=== PATIENT | male | born 2000 | race Caucasian/White ===

== ENCOUNTER → 2024-12-31 | Outpatient (CLI) | payer OTHER, MEDICAID, SELFPAY ==
[2024-12-31 12:31] LABS: Influenza A Ag Negative; Influenza B Ag Negative
== END | disposition home or self-care (01) ==
LOC: SLDO 11:19
PROVIDERS: PCP Nurse Practitioner Family; Referring Provider Nurse Practitioner Family; Visit Provider Nurse Practitioner Family
DX: J20.9 Acute bronchitis, unspecified (principal)
CPT/HCPCS: 87502; 87811

== ENCOUNTER → 2025-09-28 | Outpatient (CLI) | payer OTHER, MEDICAID, SELFPAY ==
--- NOTE | 2025-09-28 09:45 | XR_ITS ---
Examination: Abdomen sonogram, complete Date and time of exam: September 28, 2025, 0953 hours INDICATIONS: Diagnosis fatty liver, elevated liver enzymes on laboratory examination performed 2 weeks ago. Technique: Multiple real-time grayscale transabdominal sonographic images of the abdomen have been obtained. Findings: Normal gallbladder Normal common bile duct 0.3 cm Pancreatic head 2.3 cm Aorta not enlarged. Liver 14.0 cm fatty infiltration no focal liver lesions Normal hepatopetal portal venous flow Patent IVC Right kidney 11.6 cm renal cortex 1.9 cm Left kidney 10.1 cm renal cortex 1.7 cm No hydronephrosis Spleen 10.5 cm IMPRESSION: Normal gallbladder Liver normal size fatty infiltration no focal liver lesions
== END | disposition home or self-care (01) ==
PROVIDERS: PCP Nurse Practitioner Family; Referring Provider Nurse Practitioner Family; Visit Provider Nurse Practitioner Family
DX: K76.0 Fatty (change of) liver, not elsewhere classified (principal); N28.89 Other specified disorders of kidney and ureter
CPT/HCPCS: 76700